=== PATIENT | male | born 1965 | race Two or more races ===

== ENCOUNTER 2025-07-03 23:11 | Emergency (ER) | payer MEDICAID, SELFPAY ==
[2025-07-03 23:11] VITALS: BMI 37.2
[2025-07-03 23:26] VITALS: BP 152/92; PULSE 95; RESP 18; TEMP 38.1; O2SAT 97
--- NOTE | 2025-07-03 23:41 | XR_ITS ---
Examination: CT abdomen and pelvis without contrast. Coronal 3-D reconstructions. Sagittal 2-D reconstructions. Date and time of exam:July 03, 2025 at 11:50 PM INDICATIONS: Abdominal pain and distention today. CTDI: vol (mGy): 14.1 DLP: (mGycm): 914 Technique: Axial images of the abdomen have been obtained, 3 mm slice thickness Intravenous contrast material has not been administered. Low dose protocols were performed. One or more of the following dose reduction techniques were used; automated exposure control, adjustment of the mA and/or KV according to patient size, use of iterative reconstruction technique. Findings: No focal liver or splenic lesions No gallstones No pancreatic edema or mass. No renal or ureteral calculi, no hydronephrosis Normal appendix Mild edema around the descending colon No bladder mass or bladder calculi Prostatomegaly AP dimension 4.9 cm with irregular contour Bladder intact Mild to moderate diffuse lumbar degenerative disc disease Moderate hip osteoarthritis IMPRESSION: No renal or ureteral calculi, no hydronephrosis Mild edema around the descending colon, nonspecific colitis pattern Prostatomegaly, prostate irregular in contour, recommend correlation with PSA
--- NOTE | 2025-07-03 23:42 | PD.EDRME ---
Rapid Medical Screening Exam RME Arrival date/time: 07/03/25 23:11 This is a case of 59-year-old male who came in the emergency room due to abdominal pain and abdominal bloatedness with nausea vomiting for 3 days persistence of the symptoms this patient decided to start consult here in the emergency room, Chief Complaint: Abdominal Pain Time Seen by Provider: 07/03/25 23:58 Vital signs: Vital Signs Temperature 100.5 F H 07/03/25 23:26 Pulse Rate 95 07/03/25 23:26 Respiratory Rate 18 07/03/25 23:26 Blood Pressure 152/92 H 07/03/25 23:26 Pulse Oximetry (%) 97 07/03/25 23:26 Oxygen Delivery Method Room Air 07/03/25 23:26
--- NOTE | 2025-07-04 00:04 | EDNOTE_ITS ---
ED Abdominal Pain RME/HPI General Chief Complaint: Abdominal Pain Stated complaint: ABD DISTENTION Time seen by provider: 07/03/25 23:58 Arrival date/time: 07/03/25 23:11 RME / HPI RME / HPI narrative: 07/03/25 23:11 This is a case of 59-year-old male who came in the emergency room due to abdominal pain and abdominal bloatedness with nausea vomiting for 3 days persistence of the symptoms this patient decided to start consult here in the emergency room, DR. HO MAIN ED EVALUATION: 59 y/o male with Hx of HTN presents to ED c/o epigastric abdominal pain, constipation, nausea, and bloating s/p a 2 day old strawberry smoothie and 6 cans of tuna x 2 days ago. Patient was seen at [facility] on [address] and was advised to take Mylanta, but reports no relief. Patient takes Losartan and Amlodipine for hypertension. Denies fever and vomiting. No other concerns or complaints expressed at this time. Related Data Home Medications ?Medication ?Instructions ?Recorded ?Confirmed amlodipine 10 mg tablet 10 mg PO QDAY 06/26/2306/27 carvedilol 6.25 mg tablet 6.25 mg PO BID 06/26/2306/11 chlorthalidone 50 mg tablet 50 mg PO QDAY 06/26/23 cyclobenzaprine 5 mg tablet 5 mg PO BID 06/26/2306/26 dutasteride 0.5 mg capsule 0.5 mg PO QDAY 06/26/23 losartan 100 mg tablet 100 mg PO QDAY 06/26/2306/11 tamsulosin 0.4 mg capsule (Flomax) 0.4 mg PO QDAY 06/1106/26/23 Previous Rx's ?Medication ?Instructions ?Recorded cyclobenzaprine 10 mg tablet 10 mg PO TID PRN muscle s pasm #10 03/16/24 tabs pantoprazole 40 mg tablet,delayed 40 mg PO QDAY #30 ta bs 07/04/25 release (Protonix) Allergies Allergy/AdvReac Type Severity Reaction Status Date / Time No Known Allergies Allergy Verified 07/03/25 23:11 Review of Systems Review of Systems Systems Reviewed: All systems reviewed, normal except as documented Past Medical History Past Medical History CARDIAC: Positive Cardiac Disorders, Hypertension and Varicose Veins GASTROINTESTINAL: Positive Gastrointestinal Disorders and Obesity GENITOURINARY: Positive Genitourinary Disorders and Benign Prostatic Hyperplasia MUSCULOSKELETAL: Positive Musculoskeletal Disorders and Fractures Family History FAMILY HISTORY: Positive Family Cancer Surgical History SURGICAL: Positive Open Reduction Internal Fixation ED Exam Narrative Physical exam: Generally patient is alert in no obvious distress. Heart regular rate and rhythm. Lungs clear to auscultation equal bilaterally. Abdomen soft bowel sounds present nondistended mild epigastric abdominal tenderness without rebound. Extremities show no edema. Neurologic exam no focal motor or sensory deficits cranial nerves II through XII grossly intact Guy Coma Scale of 15. Course Quality Measures none Orders Category Date Time Status CT abdomen pelvis wo con Stat Exams 07/03/25 23:41 Completed CBC Stat Lab 07/03/25 23:41 Completed Comprehensive Metabolic Panel Stat Lab 07/03/25 23:41 Completed Lipase Stat Lab 07/03/25 23:41 Completed Urinalysis Stat Lab 07/03/25 23:41 Ordered Morphine Inj Med 07/04/25 00:05 Discontinued 4 mg IVP X1 ONE Pantoprazole Inj [Protonix Inj] Med 07/04/25 00:05 Discontinued 40 mg IVP X1 ONE Vital Signs Vital signs: Vital Signs Temperature 100.5 F H 07/03/25 23:26 Pulse Rate 95 07/03/25 23:26 Respiratory Rate 18 07/03/25 23:26 Blood Pressure 152/92 H 07/03/25 23:26 Pulse Oximetry (%) 97 07/03/25 23:26 Oxygen Delivery Method Room Air 07/03/25 23:26 Abdominal Pain MDM MDM Narrative MDM Narrative:: Scribe Attestation: I, Sera Solano, am scribing for and in the presence of Dr. Ho. Provider Notation: Although this document has been carefully reviewed, there may still be some phonetic and other typographical errors. These errors are purely grammatical due to imperfections in the software program and should not be construed in any way to? compromise the substance of the patient's medical care during this visit. I interpreted all labs. Lipase was slightly elevated. CT scan done the abdomen and pelvis without contrast showed no acute abnormality without pancreatic inflammation. Patient most likely ate some bad food. At the very least he has a gastritis. He was given morphine 4 mg IV and Protonix 40 mg IV with benefit. He will be discharged on Protonix to be taken as prescribed. Follow-up with his doctor. Return to ER as needed or if condition worsens. I do not believe this patient had pancreatitis. Patient data External records reviewed:: [facility] previous records (Reviewed prior ED records from 03/16/24. Patient was seen for Strain of lumbar region.) Clinical information provided by:: patient Social determinants that could affect healthcare access:: none Patient has the following chronic illnesses:: HTN How is presenting disease/condition affected by chronic disease/condition?: exacerbated by Evaluation data The following diagnostics were reviewed and interpreted by me:: lab results and radiology exam(s) Lab and/or radiology exams considered but not ordered:: None Interpretation Summary: RADIOLOGY Abdomen/Pelvis CT: Findings: No focal liver or splenic lesions. No gallstones. No pancreatic edema or mass. No renal or ureteral calculi, no hydronephrosis. Normal appendix. Mild edema around the descending colon. No bladder mass or bladder calculi. Prostatomegaly AP dimension 4.9 cm with irregular contour. Bladder intact. Mild to moderate diffuse lumbar degenerative disc disease. Moderate hip osteoarthritis. IMPRESSION: No renal or ureteral calculi, no hydronephrosis. Mild edema around the descendin g colon, nonspecific colitis pattern. Prostatomegaly, prostate irregular in contour, recommend correlation with PSA. Medications / Prescriptions Medications or Prescriptions considered but not ordered:: None Medication administrations:: Medication Administration History Discontinued Medications Morphine Sulfate (Morphine Sulf Inj 10 Mg/Ml Vial) 4 mg IVP X1 ONE Stop: 07/04/25 00:06 Last Admin: 07/04/25 00:48 Dose: 4 mg Documented By: JAC Pantoprazole Sodium (Pantoprazole Inj 40 Mg Vial) 40 mg IVP X1 ONE Stop: 07/04/25 00:06 Last Admin: 07/04/25 00:47 Dose: 40 mg Documented By: JAC See above if any. Consultations Consultation(s) initiated? (list below): No Diagnosis Differential diagnosis abdominal pain: abdominal pain, constipation, diverticulitis, gastroenteritis and small bowel obstruction Most likely diagnosis given after review of the tests above:: None Admission Indicated Admission indicated?: not indicated Explain why admission is indicated or not indicated:: Patient does not meet admission criteria Admission Request Was there a request for admission?: No Disposition Plan Disposition Plan: Discharge Discharge Attestation Discharge Attestation: The patient and all family members were given an opportunity to ask questions and understood the discharge instructions. Discharge instructions specifically effects, indications for sooner follow up or return to the emergency department, and the expected course of current diagnosis. Patient condition: Stable Discharge Plan Plan Patient Disposition: HOME (Self Care) Prescriptions/Referrals Prescriptions/Med Rec: New pantoprazole [Protonix] 40 mg tablet,delayed release (DR/EC) 40 mg PO QDAY Qty: 30 0RF No Action carvedilol 6.25 mg Tablet 6.25 mg PO BID Rx Instructions: must administer with a meal/food chlorthalidone 50 mg Tablet 50 mg PO QDAY tamsulosin [Flomax] 0.4 mg Capsule 0.4 mg PO QDAY amlodipine 10 mg Tablet 10 mg PO QDAY losartan 100 mg Tablet 100 mg PO QDAY dutasteride 0.5 mg Capsule 0.5 mg PO QDAY cyclobenzaprine 5 mg Tablet 5 mg PO BID cyclobenzaprine 10 mg tablet 10 mg PO TID PRN (Reason: muscle spasm) Qty: 10 0RF Problem List Clinical Impression: Abdominal pain Patient/Caregiver Discharge Instructions Education Materials: Abdominal Pain Additional Instructions: Avoid hot spicy greasy fatty foods. Protonix as prescribed. Follow-up with y our doctor. Return to ER as needed or if condition worsens. Print Language: Colombian Stand Alone Forms: Yesika Award Info., Patient Portal Info Letter
[2025-07-04 00:18] LABS: Basophils # (Auto) 0.0 Thou/mm3 (0.0-0.2); Basophils % (Auto) 0 % (0-2.5); Eosinophils # (Auto) 0.0 Thou/mm3 (0.0-0.5); Eosinophils % (Auto) 0 % (0-10); Hematocrit 45.8 % (41.0-53.0); Hemoglobin 15.7 g/dL (13.5-16.0); Immature Granulocytes Auto 0.03 Thou/mm3 (0.00-0.00); Lymphocytes # (Auto) 1.9 Thou/mm3 (1.0-4.8); Lymphocytes % (Auto) 17 % (10-50); Mean Corpuscular HGB Conc 34.3 g/dl (31.0-37.0); Mean Corpuscular Hemoglobin 30.1 pg (25.0-35.0); Mean Corpuscular Volume 88 fL (80-100); Monocytes # (Auto) 1.0 Thou/mm3 (0.0-0.8); Monocytes % (Auto) 9 % (0-12); Neutrophils # (Auto) 8.2 Thou/mm3 (1.8-7.7); Neutrophils % (Auto) 73 % (37-80); Nucleated Red Blood Cell # 0.00 Thou/mm3 (0.00-0.00); Nucleated Red Blood Cell % 0 /100 WBC (0); Platelet Count 186 Thou/mm3 (140-440); RDW Standard Deviation 43.8 fL (35.1-43.9); Red Blood Count 5.22 Miln/mm3 (4.50-5.90); White Blood Count 11.2 Thou/mm3 (3.8-10.6)
[2025-07-04 00:37] LABS: Alanine Aminotransferase 23 U/L (10-49); Albumin, Serum 4.4 gm/dL (3.5-5.0); Albumin/Globulin Ratio 1.6 (1.2-2.2); Alkaline Phosphatase 90 U/L (46-116); Anion Gap 9 (7-16); Aspartate Amino Transferase 26 U/L (0-34); BUN/Creatinine Ratio 15 Ratio (12-20); Bilirubin,Total 0.8 mg/dL (0.3-1.2); Blood Urea Nitrogen 17 mg/dL (9-23); Calcium 9.6 mg/dL (8.3-10.6); Calcium (Corrected) 9.6 mg/dL (8.5-10.1); Carbon Dioxide 31.8 mMol/L (20.0-31.0); Chloride 100 mMol/L (98-107); Creatinine (Component) 1.1 mg/dL (0.6-1.3); Estimated Creatinine Clearance 95.3 mL/min (>60); Globulin 2.8 gm/dL (2.3-3.5); Glucose 98 mg/dL (74-106); Lipase 211 U/L (12-53); Osmolality,Calculated 282 (275-295); Potassium 3.8 mMol/L (3.4-5.1); Sodium 141 mMol/L (136-145); Total Protein 7.2 gm/dL (5.7-8.2); eGFR > 60 See Note
[2025-07-04] MEDS: MORPHINE SULF INJ 10 MG/ML VIAL 4 MG IVP (00:48)
[2025-07-04 01:21] VITALS: BP 125/67; PULSE 78; RESP 19; TEMP 36.7; O2SAT 99
== END 2025-07-04 01:55 | disposition home or self-care (01) ==
PROVIDERS: Nurse Practitioner Family; Emergency Provider Emergency Medicine; PCP Family Medicine
DX: R10.13 Epigastric pain (principal); K59.00 Constipation, unspecified; R14.0 Abdominal distension (gaseous); I10 Essential (primary) hypertension
CPT/HCPCS: 36415; 74176; 80053; 81001; 83690; 85025; 96374; 96375; 99283; J2270; J2470